=== PATIENT | female | born 2000 | race Caucasian/White ===

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

== ENCOUNTER 2023-11-25 13:21 | Observation (INO) ==
[2023-11-25] MEDS ORDERED: Morphine 4 MG/ML VIAL (1 ml) IV PRN (13:52)
[2023-11-25] MEDS: Lactated Ringers 1000 ml BAG 1,000 ML IV ONE (14:29)
[2023-11-25 14:55] LABS: ABS Lymphocytes 1.9 10^3/uL (1.0-4.8); ABS Monocytes 0.6 10^3/uL (0.0-0.9); ABS Neutrophils 8.4 10^3/uL (1.5-7.6); Eosinophil % 0.1 %; Hemoglobin 9.8 g/dL (11.5-14.3); Mean Corpuscular Hemoglobin 28.1 pg (27-33); Mean Corpuscular Hgb Conc 33.7 g/dL (31-36); Mean Corpuscular Volume 83.4 fL (80-97); Mean Platelet Volume 10.1 fL (7.5-11.2); Platelet Count 144 10^3/uL (150-450); Red Blood Count 3.48 10^6/uL (3.63-4.92); Red Cell Distribution Width 16.7 % (12-17)
[2023-11-25 15:14] LABS: Albumin 3.3 g/dL (3.2-5.2); Albumin/Globulin Ratio 1.3 (1-3); Calcium 8.1 mg/dL (8.6-10.3); Creatinine, Serum 0.62 mg/dL (0.51-0.95); Globulin 2.6 g/dL (2-4); Potassium 3.5 mmol/L (3.5-5.0); Total Bilirubin 0.8 mg/dL (0.2-1.0); Total Protein 5.9 g/dL (6.4-8.9)
[2023-11-25] MEDS: Ondansetron 4 mg VIAL 2 MG/ML 2 ml VIAL IV PRN (17:35)
[2023-11-25] MEDS ORDERED: Lactated Ringers 1000 ml BAG 1,000 ML IV ONE (18:24)
[2023-11-25] MEDS: Lactated Ringers 1000 ml BAG 1,000 ML IV SCH (18:30)
[2023-11-25 18:32] LABS: Urine Appearance Clear; Urine Bilirubin Negative (Negative); Urine Blood Negative (Negative); Urine Color Yellow; Urine Glucose Negative (Negative); Urine Ketones Trace (Negative); Urine Nitrite Negative (Negative); Urine Protein Trace (Negative); Urine Specific Gravity 1.013 (1.002-1.030); Urine Urobilinogen Negative (Negative); Urine pH 7.5 (5.0-8.0)
[2023-11-25 18:39] LABS: Urine Bacteria 1+ /HPF (Absent); Urine Red Blood Cell Trace(0-2/hpf) /HPF (0-Trace); Urine Squamous Epithelial Cell Present /HPF (Absent); Urine White Blood Cell 2+(11-20/hpf) /HPF (0-Trace)
[2023-11-25] MEDS: cefTRIAXone 1 gm/50 mL D5W 1 GM/50 ML BAG IV SCH (19:55)
[2023-11-26] MEDS: Lactated Ringers 1000 ml BAG 1,000 ML IV SCH (03:23)
[2023-11-26] MEDS: cefTRIAXone 1 gm/50 mL D5W 1 GM/50 ML BAG IV SCH (19:48)
[2023-11-27] MEDS: Buffered Lidocaine 1% SYRIN 1 ml INTRADERM ONE (08:15)
[2023-11-27] MEDS: Ondansetron 4 mg VIAL 2 MG/ML 2 ml VIAL ONE (08:16)
[2023-11-27] MEDS: Iron Sucrose 200 MG in NS 0.9% 100 ml BAG 100 ML IVPB ONE (10:30)
== END 2023-11-27 12:16 | disposition home or self-care (01) ==
LOC: MCHOB 13:21 → MCHOBOUT 13:21 → MCHOB 13:25
PROVIDERS: ADMIT Advanced Practice Midwife

== ENCOUNTER 2024-01-04 08:04 | Inpatient (IN) ==
[2024-01-04] MEDS: Buffered Lidocaine 1% SYRIN 1 ml INTRADERM ONE (08:26)
[2024-01-04] MEDS ORDERED: Prochlorperazine 5 mg/ml 2 ml VIAL (10 mg) IV PRN (08:26)
[2024-01-04] MEDS ORDERED: Nalbuphine 10 MG/ML 1 ML VIAL IV PRN (08:26)
[2024-01-04] MEDS: Lactated Ringers 1000 ml BAG 1,000 ML IV ONE ×2 (09:00→13:30)
[2024-01-04 09:08] LABS: Urine Benzodiazepine Screen None Detected (None Detect); Urine Cannabinoids Screen None Detected (None Detect); Urine Opiates Screen None Detected (None Detect)
[2024-01-04 09:42] LABS: ABS Eosinophils 0.1 10^3/uL (0.0-0.5); ABS Lymphocytes 2.1 10^3/uL (1.0-4.8); ABS Monocytes 0.7 10^3/uL (0.0-0.9); ABS Neutrophils 7.5 10^3/uL (1.5-7.6); ABS Nucleated RBC 0.01 10^3/ul; Eosinophil % 0.6 %; Hematocrit 31.1 % (35-45); Hemoglobin 10.3 g/dL (11.5-14.3); Lymphocyte % 19.9 %; Mean Corpuscular Hemoglobin 28.1 pg (27-33); Mean Corpuscular Hgb Conc 33.3 g/dL (31-36); Mean Corpuscular Volume 84.3 fL (80-97); Mean Platelet Volume 10.1 fL (7.5-11.2); Nucleated Red Blood Cells % 0.1 %/100WBC (0.0-0.8); Platelet Count 153 10^3/uL (150-450); Red Blood Count 3.68 10^6/uL (3.63-4.92); Red Cell Distribution Width 16.6 % (12-17); White Blood Count 10.3 10^3/uL (3.8-11.8)
[2024-01-04] MEDS: Oxytocin in LR 20,000 MILLI.UNIT/1,000 ML BAG IV SCH ×2 (10:05→17:00)
[2024-01-04] MEDS: Lactated Ringers 1000 ml BAG 1,000 ML IV SCH ×2 (10:20→14:00)
[2024-01-04] MEDS: OBEPIDURAL (200 ML) 200 ML EPIDURAL SCH (12:40)
[2024-01-04] MEDS: Lidocaine 1.5% EPI 1:200,000 30 ML SDV ONE (12:45)
[2024-01-04] MEDS: OBEPIDURAL (200 ML) 200 ML EPIDURAL ONE (12:47)
[2024-01-04] MEDS ORDERED: Sodium Citrate/Citric Acid LIQ 15 ML UDC PO PRN (13:08)
[2024-01-04] MEDS ORDERED: Phenylephrine 40 mcg/mL 10mL (400mcg) SYRINGE IV PUSH PRN ×2 (13:08)
[2024-01-04 13:58] LABS: Urine Appearance Clear; Urine Bilirubin Negative (Negative); Urine Blood Negative (Negative); Urine Color Light-Yellow; Urine Glucose Negative (Negative); Urine Ketones Negative (Negative); Urine Nitrite Negative (Negative); Urine Protein Negative (Negative); Urine Specific Gravity 1.007 (1.002-1.030); Urine Urobilinogen Negative (Negative)
[2024-01-04] MEDS: Lidocaine 1% VIAL 10 MG/ML 30 ML VIAL INJ PRN (14:50)
[2024-01-04] MEDS ORDERED: Glycerin ADULT 2.4 gm SUPP PR PRN (15:10)
[2024-01-04] MEDS: Methylergonovine 0.2 mg AMPULE 1 ml AMP ONE (15:56)
[2024-01-04] MEDS ORDERED: Lactated Ringers 1000 ml BAG 1,000 ML IV SCH (16:00)
[2024-01-04] MEDS: Dibucaine 1% OINT 28.35 GM TUBE PR PRN (16:08)
[2024-01-04] MEDS: Witch Hazel PAD JAR TOPICAL PRN (16:08)
[2024-01-04] MEDS: Azithromycin 500 mg/250 ml NS 500 MG/250 ML BAG IVPB ONE (16:14)
[2024-01-05 08:54] LABS: ABS Basophils 0.1 10^3/uL (0.0-0.1); ABS Eosinophils 0.1 10^3/uL (0.0-0.5); ABS Lymphocytes 2.6 10^3/uL (1.0-4.8); ABS Monocytes 0.7 10^3/uL (0.0-0.9); ABS Neutrophils 10.3 10^3/uL (1.5-7.6); Eosinophil % 0.7 %; Hematocrit 25.1 % (35-45); Hemoglobin 8.6 g/dL (11.5-14.3); Lymphocyte % 18.8 %; Mean Corpuscular Hemoglobin 28.8 pg (27-33); Mean Corpuscular Volume 84.6 fL (80-97); Mean Platelet Volume 10.2 fL (7.5-11.2); Platelet Count 156 10^3/uL (150-450); Red Blood Count 2.97 10^6/uL (3.63-4.92); Red Cell Distribution Width 16.4 % (12-17); White Blood Count 13.7 10^3/uL (3.8-11.8)
[2024-01-05 13:35] VITALS: BP 121/73
== END 2024-01-05 12:00 | disposition home or self-care (01) | DRG 541 ==
LOC: MCHOBOUT 08:04 → MCHOB 08:24
PROVIDERS: ADMIT Obstetrics & Gynecology; ATTEND Obstetrics & Gynecology